=== PATIENT | male | born 1945 | race Caucasian/White ===

== ENCOUNTER 2017-12-06 09:03 | Outpatient (CLI) | payer MEDICARE, MEDICAID ==
[2017-12-06 09:50] LABS: CALCIUM, SERUM 8.8 mg/dL (8.5-10.1); CREATININE 0.8 mg/dL (0.6-1.3); POTASSIUM 4.3 mmol/L (3.5-5.1)
[2017-12-06] MEDS ORDERED: IOHEXOL-350 100 ML VIAL IV ONE (10:34)
[2017-12-06] MEDS ORDERED: IV NS 0.9% 250 ML IV ONE (10:34)
== END 2017-12-06 23:59 | disposition home or self-care (01) ==
LOC: CT 09:03
PROVIDERS: ATTEND Internal Medicine Interventional Cardiology
DX: I65.23 Occlusion and stenosis of bilateral carotid arteries (principal); I65.01 Occlusion and stenosis of right vertebral artery; J98.4 Other disorders of lung
CPT/HCPCS: 36415; 70498; 80048; J7050; Q9967

== ENCOUNTER 2018-07-25 09:32 | Outpatient (CLI) | payer MEDICARE, MEDICAID ==
[2018-07-25 10:24] LABS: CREATININE 0.7 mg/dL (0.6-1.3); POTASSIUM 4.2 mmol/L (3.5-5.1)
[2018-07-25] MEDS ORDERED: IV NS 0.9% 250 ML IV ONE (10:42)
[2018-07-25] MEDS ORDERED: CT SWABBABLE VALVE TRANS SET 1 EA INFUS.SET MC ONE (10:42)
[2018-07-25] MEDS ORDERED: IOHEXOL-350 100 ML VIAL IV ONE (10:42)
== END 2018-07-25 23:59 | disposition home or self-care (01) ==
LOC: CT 09:32
PROVIDERS: ATTEND Internal Medicine Interventional Cardiology
DX: I65.23 Occlusion and stenosis of bilateral carotid arteries (principal); J43.9 Emphysema, unspecified; J98.11 Atelectasis; M47.812 Spondylosis without myelopathy or radiculopathy, cervical region; I10 Essential (primary) hypertension
CPT/HCPCS: 36415; 70498; 80048; J7050; Q9967

== ENCOUNTER 2019-08-29 09:28 | Outpatient (CLI) | payer MEDICARE, MEDICAID ==
[2019-08-29] MEDS ORDERED: IV NS 0.9% 250 ML IV ONE (10:00)
[2019-08-29] MEDS ORDERED: IOHEXOL-350 100 ML VIAL IV ONE (10:00)
[2019-08-29] MEDS ORDERED: CT SWABBABLE VALVE TRANS SET 1 EA INFUS.SET MC ONE (10:00)
[2019-08-29 10:14] LABS: CALCIUM, SERUM 8.8 mg/dL (8.5-10.1); CREATININE 0.9 mg/dL (0.6-1.3)
== END 2019-08-29 23:59 | disposition home or self-care (01) ==
LOC: CT 09:28
PROVIDERS: ATTEND Internal Medicine Interventional Cardiology
DX: I10 Essential (primary) hypertension (principal); I65.23 Occlusion and stenosis of bilateral carotid arteries; I70.0 Atherosclerosis of aorta; J43.2 Centrilobular emphysema; M47.812 Spondylosis without myelopathy or radiculopathy, cervical region
CPT/HCPCS: 36415; 70498; 80048; J7050; Q9967